=== PATIENT | male | born 1965 | race Caucasian/White ===

== ENCOUNTER → 2017-05-06 | Day surgery (SDC) | payer OTHER ==
[~2017-05-06] VITALS: Ht 167.6 cm; Wt 85.0 kg
[~2017-05-06] MED LIST: *morphine SULFATE 8 MG/ML PERIprocedure ONLY ONE; ADVA100A INH; ALBUAER3 INH; AMBI10TA PO; AMLO10 PO; BACI500O61 TOPICAL; BUTA1CAP2 PO; CHLORHEXIDINE GLUCONATE 2 % 1 PACK (2 CLOTHS) TOPICAL PRN; CLAR10CA3 PO; CLOPIDOGREL 75 MG TAB PO ONE; CLOPIDOGREL 75 MG TAB PO SCH; DICL75TA PO; DO NOT ADM ANY ANTICOAGULANT DRUGS PRN; GABA600T PO; HEPARIN SODIUM - IV 10,000 UNITS/10 ML VIAL ONE; INSULIN HUMAN REGULAR 1,000 UNITS/10 ML VIAL SQ PRN; IOHEXOL 350 MG/ML 50 ML BTL (for RAD DIAG) ONE; KLON2TAB PO; LACTATED RINGER'S 1000 ML INJ 1,000 ML IV ONE; LACTATED RINGER'S 1000 ML IV PRN; LORA-474 PO; LOVA10TA PO; METOPROLOL TARTRATE 25 MG TAB PO PRN; MIDAZOLAM HCL 2 MG/2 ML VIAL ONE; NEOSTIGMINE 3 MG/3 ML SYR IV ONE; OMEP40CA2 PO; PHENYLEPH/NS 1000 MCG/10 ML SYR IV ONE; POVIDONE IODINE 5% (ANTISEPSIS KIT) 4 APPLICATIONS EACH NARE PRN; PROPOFOL 200 MG/20 ML AMP IV ONE; PROTAMINE SULFATE 50 MG/5 ML VIAL ONE; RESP: ALBUTEROL 2.5 MG/IPRATROPIUM 0.5 MG NEB (SCH) ONE; ROBA500T PO; SILD20TA11 PO; SODIUM CHLORID 0.9% 500 ML IV PRN; TRAM50TA PO; TYLETAB34 PO; UMEC1AER INH; VESI5TAB PO; ZOFR4TAB3 SL; ceFAZolin 2 GM PREMIX 50 ML ONE; fentaNYL CITRATE 250 MCG/5 ML AMP ONE
[2017-05-06 11:12] LABS: AUTOMATED NEUTROPHIL # 8.4 TH/MM3 (1.8-7.7); BASOPHIL # 0.1 TH/MM3 (0-0.2); EOSINOPHIL # 0.3 TH/MM3 (0-0.4); EOSINOPHIL % 2.3 % (0.0-4.0); HEMATOCRIT 47.6 % (39.0-51.0); HEMO FLAGS DIFF FINAL; LYMPH % 26.3 % (9.0-44.0); LYMPHOCYTE # 3.4 TH/MM3 (1.0-4.8); MEAN CELL VOLUME 85.2 FL (80.0-100.0); MEAN CORPUSCULAR HEMOGLOBIN 28.4 PG (27.0-34.0); MEAN CORPUSCULAR HGB CONC 33.3 % (32.0-36.0); MONO % 5.7 % (0.0-8.0); NEUT % 64.7 % (16.0-70.0); PLATELET COUNT 339 TH/MM3 (150-450); RED BLOOD COUNT 5.59 MIL/MM3 (4.50-5.90); RED CELL DISTRIBUTION WIDTH 13.9 % (11.6-17.2); WHITE BLOOD COUNT 12.9 TH/MM3 (4.0-11.0)
[2017-05-06 11:24] LABS: INTERNATIONAL NORMALIZED RATIO 0.9 RATIO
[2017-05-06 11:30] LABS: BICARBONATE 23.2 MEQ/L (21.0-32.0); POTASSIUM 4.1 MEQ/L (3.5-5.1)
--- NOTE | 2017-05-06 11:30 | PD.VS.PN ---
Pre-operative Note Pre-operative diagnosis: PAD, L iliac artery occlusion Planned procedure: Aortogram w/ L iliac angiogram Interval History: No changes that would preclude surgery - no F/C/N/V. Labs: Laboratory Results Test 05/06/17 10:42 Hematocrit 47.6 % (39.0-51.0) Hemoglobin 15.9 GM/DL (13.0-17.0) Mean Corpuscular Hemoglobin 28.4 PG (27.0-34.0) Mean Corpuscular Hemoglobin Concent 33.3 % (32.0-36.0) Mean Corpuscular Volume 85.2 FL (80.0-100.0) Mean Platelet Volume 8.2 FL (7.0-11.0) Platelet Count 339 TH/MM3 (150-450) Red Blood Count 5.59 MIL/MM3 (4.50-5.90) Red Cell Distribution Width 13.9 % (11.6-17.2) White Blood Count 12.9 TH/MM3 (4.0-11.0) Blood: none needed Orders: NPO Ancef 2g IV OCTOR Post-operative destination: PACU Operative site marked: No (B groin angiogram) Consent: Informed consent has been obtained from Randy Grayson. I have explained the procedure in detail and discussed the risks, benefits, and potential complications. All questions have been answered. Sawyer Fernandes MD May 06, 2017 11:30
--- NOTE | 2017-05-06 13:22 | HHI.PR ---
Immediate Post Op Note Procedure Date: May 06, 2017 Pre Op Diagnosis: PAD, L iliac artery occlusion Post Op Diagnosis: PAD, L iliac artery occlusion Surgeon: Sawyer Fernandes Poultry Scalder(s): none Procedure: Aortogram w/ L ISH stent (10x80 Zilver) U/S guided access to L SLAB INSTALLER L SLAB INSTALLER Angioseal Findings: occluded L ISH, recanalized and RESEARCHER/stent Complications: none apparent Specimen(s) removed: none Estimated blood loss: 10mL Anesthesia: General Drains: None Patient to: PACU Implant/Devices: SEE IMPLANT LOG (if applicable) Date/Time of Procedure: SEE SURGICAL CARE RECORD Sawyer Fernandes MD May 06, 2017 13:22
[2017-05-06 14:20] VITALS: BP 153/86; PULSE 91; RESP 20; O2SAT 91
--- NOTE | 2017-05-06 20:54 | MP ---
cc: ELSIE FERNANDES MD DATE OF SURGERY 05/06/17 PREOPERATIVE DIAGNOSIS Left lower extremity pain, peripheral vascular occlusive disease POSTOPERATIVE DIAGNOSIS Left lower extremity pain, peripheral vascular occlusive disease PROCEDURE 1. Ultrasound guided access to left common femoral artery. 2. Left common iliac artery angioplasty and stent with a 10 x 80 Zilver 3. Left common femoral artery Angio-Seal. ATTENDING SURGEON Prakash Fernandes MD ANESTHESIA General INDICATIONS Mr. Grayson is a gentleman with left lower extremity leg pain that I think is multifactorial. However, he did not have a palpable femoral pulse and a preoperative imaging suggested that he had an occluded iliac artery. After discussion with the patient of the risk and benefits including the potential for inadequate relief of his left leg pain, he was offered an angioplasty and potential endovascular intervention. There is no prior catheter-based imaging available for my review. DESCRIPTION OF PROCEDURE Informed consent was obtained from the patient. He was taken to the operating room and placed supine on the operating table. An appropriate time-out was taken to ensure the patient's identity, operative site and the planned procedure. The administration of 2 grams of Ancef was initiated prior to the skin incision and will be discontinued after a single preoperative dose. Everyone in the room agreed to the time-out and we proceeded. His bilateral groins were prepped and draped and under ultrasonographic guidance the left common femoral artery was accessed with a 21 gauge micropuncture needle which was exchanged using Seldinger technique for a micropuncture sheath through which a 0.035 [place] wire was introduced and the micropuncture sheath was changed for a 5-Comoran sheath. A short Berenstein catheter was then introduced and the [place] wire was exchanged for a DEVELOPMENT EDITOR wire. Using the DEVELOPMENT EDITOR and Berenstein, we were able to navigate through the iliac occlusion. The Berenstein was advanced over the DEVELOPMENT EDITOR wire and angiogram confirmed we were indeed in the aorta. The Brink wire was introduced and the 5-Comoran sheath was exchanged for a 7-Comoran 25 cm sheath. The patient was then systemically heparinized with 5000 units of intravenous heparin. The iliac artery was then angioplastied with a 6 then an 8-mm angioplasty balloon. The completion results showed a residual stenosis and this was treated with a 10 x 80 Zilver self-expanding stent that was post-dilated to 9 mm. Completion angiogram showed no luminal irregularities and good filling of the external iliac artery. Wire catheter and sheath were removed the wound was closed with AngioSeal. There were no complications. I was present, scrubbed and performed the entire procedure. INTERPRETATION The patient has an occluded left common iliac artery but patent external artery and patent right iliac system. After angioplasty, there is incomplete relief of the stenosis and, after stenting, there is excellent in-line flow of the common and external iliac arteries. MD TUNDE Salazar/ /5:13 PM /8:35 PM
--- NOTE | 2017-05-07 20:10 | EKG ---
Date Performed: 05/06/2017 Time Performed: 10:48:21 PTAGE: 52 years EKG: Sinus rhythm NORMAL ECG PREVIOUS TRACING : 01/25/2016 09.07 Compared to prior tracing no significant change DOCTOR: Reba Avila Interpretating Date/Time 05/07/2017 20:09:21
== END | disposition home or self-care (01) ==
LOC: HCVO 10:02
PROVIDERS: ATTEND Surgery
DX: I74.5 Embolism and thrombosis of iliac artery (principal); M79.605 Pain in left leg; Z01.810 Encounter for preprocedural cardiovascular examination; Z01.818 Encounter for other preprocedural examination
CPT/HCPCS: 01924; 37221; 75716; 75736; 80048; 85025; 85610; 86850; 86900; 86901; 93005; 94664; C1725; C1769; C1876; C1893; G0269; J0690; J1644; J2250; J2270; J2370; J2710; J2720; J3010; J7120; Q9967

== ENCOUNTER 2017-05-10 10:25 | Emergency (ER) | payer OTHER ==
[~2017-05-10] VITALS: Ht 167.6 cm; Wt 85.0 kg
[~2017-05-10 10:25] MED LIST changes: -*morphine SULFATE 8 MG/ML PERIprocedure ONLY ONE; -CHLORHEXIDINE GLUCONATE 2 % 1 PACK (2 CLOTHS) TOPICAL PRN; -CLOPIDOGREL 75 MG TAB PO ONE; -CLOPIDOGREL 75 MG TAB PO SCH; -DO NOT ADM ANY ANTICOAGULANT DRUGS PRN; -HEPARIN SODIUM - IV 10,000 UNITS/10 ML VIAL ONE; -INSULIN HUMAN REGULAR 1,000 UNITS/10 ML VIAL SQ PRN; -IOHEXOL 350 MG/ML 50 ML BTL (for RAD DIAG) ONE; -LACTATED RINGER'S 1000 ML INJ 1,000 ML IV ONE; -LACTATED RINGER'S 1000 ML IV PRN; -LORA-474 PO; -METOPROLOL TARTRATE 25 MG TAB PO PRN; -MIDAZOLAM HCL 2 MG/2 ML VIAL ONE; -NEOSTIGMINE 3 MG/3 ML SYR IV ONE; -PHENYLEPH/NS 1000 MCG/10 ML SYR IV ONE; -POVIDONE IODINE 5% (ANTISEPSIS KIT) 4 APPLICATIONS EACH NARE PRN; -PROPOFOL 200 MG/20 ML AMP IV ONE; -PROTAMINE SULFATE 50 MG/5 ML VIAL ONE; -RESP: ALBUTEROL 2.5 MG/IPRATROPIUM 0.5 MG NEB (SCH) ONE; -SODIUM CHLORID 0.9% 500 ML IV PRN; -TYLETAB34 PO; -UMEC1AER INH; -ZOFR4TAB3 SL; -ceFAZolin 2 GM PREMIX 50 ML ONE; -fentaNYL CITRATE 250 MCG/5 ML AMP ONE
[2017-05-10 10:29] VITALS: BP 160/92; PULSE 105; RESP 20; TEMP 98.6; O2SAT 94
--- NOTE | 2017-05-10 11:47 | PD ---
Data Data Last Documented VS Vital Signs Date Time Temp Pulse Resp B/P (MAP) Pulse Ox O2 Delivery O2 Flow Rate FiO2 05/10/17 10:44 Room Air 05/10/17 10:29 98.6 105 20 160/92 (114) 94 MDM Supervised Visit with ALEXIS: No Narrative Course Initially attempted to see the patient at 1132. Apparently referred in for concern for hematoma near cath site. He has a large dog with him lying next to the bed with a leash on the floor. I asked him "is this a service dog necessary because of a disability". He stated "yes it is, why are you scared". I replied no. He started yelling forcefully "what, do you want to see some identification", raising his voice and widening his finger at me. I replied no that we ask every patient with an animal that question, and that we really only allow service animals in the emergency department. He continued to raise his voice speak forcefully wave his hand threateningly. He explained that it was made "perfectly clear" out front. I told him I would come back in 5 minutes when he had time to cool down. He started outright yelling at me "No you will come back now" and then slammed the door and left. He apparently it made threatening statements about going to get his gun when he left the hospital. The nurse reports that the hematoma site looks okay. Unfortunately was made that able to evaluate the hematoma before he left. I did speak with Dr. Fernandes, the patient's best neurosurgeon. He is very familiar with the patient. He said similar rational aggressive behavior in the past although never with him personally. He'll recheck the patient and a vitamin come back to the clinic for further evaluation of the hematoma. Patient Instructions: General Instructions Departure Forms: Tests/Procedures Disposition: 07 AGAINST MEDICAL ADVICE Greg Pulido MD May 10, 2017 11:46
[2017-05-10] MEDS ORDERED: UMEC1AER INH (17:22)
[2017-05-10] MEDS ORDERED: TYLETAB34 PO (19:50)
[2017-05-10] MEDS ORDERED: ZOFR4TAB3 SL (19:50)
[2017-05-10] MEDS ORDERED: LORA-474 PO (19:50)
== END 2017-05-10 11:35 | disposition left against medical advice (07) ==
LOC: NEPC 10:25
DX: R46.89 Other symptoms and signs involving appearance and behavior (principal); Z53.29 Procedure and treatment not carried out because of patient's decision for other reasons
CPT/HCPCS: 99281

== ENCOUNTER 2017-11-27 12:03 | Emergency (ER) | payer OTHER ==
[~2017-11-27 12:03] MED LIST changes: -ADVA100A INH; +LORA-474 PO; +TYLETAB34 PO; +UMEC1AER INH; -VESI5TAB PO; +VESI5TAB2 PO; +ZOFR4TAB3 SL
[2017-11-27 12:36] VITALS: BP 126/79; PULSE 80; RESP 16; TEMP 97.9; O2SAT 94
--- NOTE | 2017-11-27 13:00 | PD.PSY.CON ---
Provisional Diagnosis Admission Date Bradley I. Abutment disorder with disturbance of conduct Bradley II. Unspecified personality disorder Bradley III. COPD, HTN History of Present Illness Service Psychiatry Consult Requested By ER Reason for Consult Stephen sow Primary Care Physician Non-Staff HPI Transfer from [facility], where he was admitted and treated for Pneumonia, under stephen horowitz due to erratic Behavior and refusal to fllow recommendations. Past Family Social History Coded Allergies: Iodinated Contrast- Oral and IV Dye (Verified Allergy, Unknown, 05/10/17) baclofen (Verified Allergy, Unknown, 05/10/17) Per pt. Active Scripts Solifenacin (Vesicare) 5 Mg Tab, 5 MG PO DAILY for Urinary Symptom Managemen, # 30 TAB 5 Refills Prov:Brody Noel DO 10/13/17 Ondansetron Odt (Zofran Odt) 4 Mg Tab, 4 MG SL Q6HR Y for Nausea/Vomiting, #6 TAB 0 Refills Prov:Gerald Maciel MD 05/10/17 Lorazepam (Ativan) 1 Mg Tab, 1 MG PO Q6H Y for ANXIETY AND/OR AGITATION, #20 TAB 0 Refills Prov:Gerald Maciel MD 05/10/17 Acetaminophen-Codeine (Tylenol-Codeine #3) 300-30 mg Tab, 1-2 TAB PO Q6H Y for PAIN, #20 TAB 0 Refills Prov:Gerald Maciel MD 05/10/17 Sildenafil (Sildenafil) 20 Mg Tab, 20 MG PO DIRECTED for Pulm. arterial hypertension, #6 TAB 1 Refill ONE HOUR PRIOR Prov:Brody Noel DO 04/14/17 Reported Medications Umeclidinium-Vilanterol Inh (Anoro Ellipta Inh) 62.5-25 Mcg/Act Aero, 1 PUFF INH DAILY for COPD, #1 INHALER 0 Refills 05/10/17 Albuterol 8.5 GM Inh (Proair Hfa 8.5 GM Inh) 90 Mcg/Act Aer, 2 PUFF INH Q4-6H Y for SHORTNESS OF BREATH, #1 INHALER 0 Refills 108 mcg/actuation 05/06/17 Clonazepam (Klonopin) 2 Mg Tab, 3 MG PO BID, #60 TAB 0 Refills 05/06/17 Zolpidem (Ambien) 10 Mg Tab, 10 MG PO HS Y for INSOMNIA, TAB 0 Refills 05/06/17 Lovastatin (Lovastatin) 10 Mg Tab, 10 MG PO DAILY for Cholesterol Management, # 30 TAB 0 Refills 05/06/[address] (Diclofenac Sodium DR) 75 Mg Tabdr, 75 MG PO BID, #60 TAB 0 Refills 05/06/17 Amlodipine (Norvasc) 10 Mg Tab, 10 MG PO DAILY for Blood Pressure Management, # 30 TAB 0 Refills 05/06/17 Tramadol (Tramadol) 50 Mg Tab, 50 MG PO Q4H Y for PAIN, TAB 0 Refills 05/06/17 Meihdiamxt-Molczqhqfmdiu-Iruoqkvu-Codeine (Fioricet-Codeine) 55-254-80-30 Mg Cap , 1-2 CAP PO DIRECTED Y for HEADACHE, CAP 0 Refills Do not exceed 6 capsules/day. 03/31/17 Omeprazole (Omeprazole) 40 Mg Cap, 40 MG PO DAILY, #30 CAP 0 Refills 03/31/17 Loratadine (Claritin) 10 Mg Cap, 10 MG PO DAILY for Allergy Management, CAP 0 Refills 03/31/17 Methocarbamol (Robaxin) 500 Mg Tab, 750 MG PO DAILY for Muscle Spasm, TAB 0 Refills 07/15/16 Gabapentin (Gabapentin) 600 Mg Tab, 600 MG PO QID, #90 TAB 0 Refills 07/15/16 Bacitracin (Bacitracin) 500 Unit/Gm Oint, 1 APPLIC TOPICAL, #1 TUBE 07/15/16 Physical Exam Vital Signs Vital Signs Date Time Temp Pulse Resp B/P (MAP) Pulse Ox O2 Delivery O2 Flow Rate FiO2 11/27/17 12:36 97.9 80 16 126/79 (95) 94 Room Air Mental Status Examination Appearance: Appropriate Consciousness: Alert Orientation: x4 Motor Activity: Normal gait Speech: Unremarkable Language: Adequate Fund of Knowledge: Adequate Attention and Concentration: Adequate Memory: Unremarkable Mood: Appropriate Affect: Irritable Thought Process & Associations: Intact Thought Content: Appropriate Hallucination Type: None Delusion Type: None Suicidal Ideation: No Suicidal Plan: No Suicidal Intention: No Homicidal Ideation: No Homicidal Plan: No Homicidal Intention: No Insight: Fair Judgment: Impulsive Assessment & Plan Problem List: (1) Adjustment disorder with mixed disturbance of emotions and conduct ICD Codes: F43.25 - Adjustment disorder with mixed disturbance of emotions and conduct Assessment & Plan: Patient does not meet criteria for psychiatric admission. Mitchell act will be lifted. Assessment & Plan Estimated LOS: Erick Mandel MD Nov 27, 2017 13:00
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
== END 2017-11-27 16:03 | disposition home or self-care (01) ==
LOC: NEPJ 12:03
DX: F43.25 Adjustment disorder with mixed disturbance of emotions and conduct (principal); D64.9 Anemia, unspecified; I10 Essential (primary) hypertension; I69.8 Sequelae of other cerebrovascular diseases; F41.9 Anxiety disorder, unspecified; J44.9 Chronic obstructive pulmonary disease, unspecified; Z72.0 Tobacco use; Z79.899 Other long term (current) drug therapy
CPT/HCPCS: 99283